=== PATIENT | male | born 1980 | race Caucasian/White ===

== ENCOUNTER 2021-03-15 00:08 | Emergency (ER) | payer OTHER, BC, SELFPAY ==
[2021-03-15 00:21] VITALS: BP 131/77; PULSE 66; TEMP 35.9; O2SAT 98
[2021-03-15 00:24] VITALS: BP 131/77; PULSE 66; RESP 17; TEMP 35.9; O2SAT 100; BMI 26.4
--- NOTE | 2021-03-15 00:29 | DI.RAD.S_ITS ---
PROCEDURE: XR HAND LT MIN 3V INDICATIONS: fall pain TECHNIQUE: 3 views of the hand(s) acquired. COMPARISON: None. FINDINGS: Bones: No fractures or dislocations. Carpal bones are normally aligned. No suspicious bony lesions. Soft tissues: No suspicious soft tissue calcifications. IMPRESSION: No acute left hand fracture or dislocation. Dictated by: Amado Rojas M.D. on 03/15/2021 at 0:51 Approved by: Amado Rojas M.D. on 03/15/2021 at 0:51
--- NOTE | 2021-03-15 00:57 | ED.FALL ---
HPI - Fall General Chief Complaint: Fall Stated Complaint: fall at work/left hand swollen/right knee pain Time Seen by Provider: 03/15/21 00:29 Source: patient Mode of arrival: Ambulatory History of Present Illness HPI Narrative: Hand injury. He was at work when he slipped and fell on the floor. He was holding a drink in his left hand and a phone in his right hand when he slipped and fell. He fell left elbow and hand. No head injury or loss of consciousness. He has no numbness tingling or weakness. He was able to finish off his shift but as time has gone on he has had increasing pain. He also complaining of pain in his right knee which he feels he has twisted. Related Data Allergies Allergy/AdvReac Type Severity Reaction Status Date / Time Cefuroxime Allergy Unknown Uncoded 10/01/17 11:48 Review of Systems Review of Systems Narrative: GENERAL: Denies chills,fever HEENT: Denies throat pain RESPIRATORY: Denies dyspnea, cough, wheezing CARDIOVASCULAR: Denies chest pain, palpitations GASTROINTESTINAL: Denies nausea, vomiting MUSCULOSKELETAL: See HPI SKIN: No rash, no laceration, no pruritus NEUROLOGIC: Denies weakness, dizziness, headache, numbness 8 point review of systems is negative except for those stated above and HPI Patient History Social History Smoking Status: Never smoker Smoking Status: Never smoker alcohol intake frequency: a few times a week Substance Use Type: does not use Exam Initial Vital Signs Initial Vital Signs: Vital Signs Temperature 96.6 F L 03/15/21 00:21 Pulse Rate 66 03/15/21 00:21 Blood Pressure 131/77 03/15/21 00:21 Pulse Oximetry 98 03/15/21 00:21 GENERAL: Well-appearing, well-nourished and in no acute distress. CARDIOVASCULAR: peripheral pulses in tact, cap refill <2 sec RESPIRATORY: No respiratory distress, speaks in full sentences without difficulty EXTREMITIES: Normal range of motion, no clubbing or edema. Neurovascularly intact Left upper extremity no significant swelling or deformity. Clavicle shoulder are intact. Able to flex and extend elbow. Able to pronate and supinate easily. Wrist has good flexion and extension. Patient is having some pain in metacarpal areas. No swelling good cap refill. Right lower extremity knee is stable no swelling full flexion and extension. NEUROLOGICAL: Cranial nerves II through XII grossly intact. Normal gait and speech. SKIN: Warm, dry, no petechiae, no rashes or lesions. Course Orders Ordered: ED Orders 03/15/21 00:29 XR hand LT min 3V Stat Discontinued Medications Ibuprofen (Ibuprofen 400 Mg Tablet) 800 mg PO NOW ONE Stop: 03/15/21 01:03 Last Admin: 03/15/21 01:08 Dose: 800 mg Documented by: NONA Vital Signs Vital signs: Vital Signs - 8 hr 03/15/21 00:21 03/15/21 00:24 Temperature 96.6 F L 96.6 F L Pulse Rate 66 66 Respiratory Rate 17 Blood Pressure 131/77 131/77 Pulse Oximetry 98 100 MDM - Fall Imaging Data Extremity x-ray #1: Radiologist's Impression: PROCEDURE:? XR HAND LT MIN 3V ? INDICATIONS:? fall pain ? TECHNIQUE:? 3 views of the hand(s) acquired.? ? COMPARISON:? None. ? FINDINGS:? ? Bones:? No fractures or dislocations.? Carpal bones are normally aligned.? No suspicious bony lesions.? ? Soft tissues:? No suspicious soft tissue calcifications.? ? ? IMPRESSION:? No acute left hand fracture or dislocation. ? ? Dictated by: Amado Rojas M.D. on 03/15/2021 at 0:51 ? ? Approved by: Amado Rojas M.D. on 03/15/2021 at 0:5 Discharge Plan Departure Patient Disposition: Home Clinical Impression: Sprain and strain of left hand Strain of right knee Qualifiers: Encounter type: initial encounter Qualified Code(s): S86.911A - Strain of unspecified muscle(s) and tendon(s) at lower leg level, right leg, initial encounter Instructions: Finger Sprain, DI for Knee Sprain Activity Restrictions/Additional Instructions: *You have been diagnosed with left hand sprain, right knee sprain *What to do: Increase activity as tolerated. Ice 20-30 minutes at a time. *Continue to take medications as directed Motrin 800 mg every 8 hours if needed for [id number] pain *Follow up with your primary care provider in 2-3 days *Return to ER if you should have increasing pain swelling numbness tingling or weakness or any new, worsening or concerning symptoms Referrals: [facility] Resources [Outside]
[2021-03-15] MEDS: IBUPROFEN 400 MG TABLET 800 MG PO (01:08)
== END 2021-03-15 01:13 | disposition home or self-care (01) ==
PROVIDERS: Emergency Provider Emergency Medicine
DX: S63.92XA Sprain of unspecified part of left wrist and hand, initial encounter (principal); S66.912A Strain of unspecified muscle, fascia and tendon at wrist and hand level, left hand, initial encounter; S86.911A Strain of unspecified muscle(s) and tendon(s) at lower leg level, right leg, initial encounter; W19.XXXA Unspecified fall, initial encounter; Y99.0 Civilian activity done for income or pay
CPT/HCPCS: 73130; 99283